=== PATIENT | female | born 1960 | race Caucasian/White ===

== ENCOUNTER → 2017-06-25 | Outpatient (REF) | payer OTHER | LOC: M LAB REF 20:30 | DX: Z12.4 Encounter for screening for malignant neoplasm of cervix (principal) ==

== ENCOUNTER → 2017-07-01 | Outpatient (CLI) | payer OTHER | LOC: M RAD 13:50 | DX: Z12.31 Encounter for screening mammogram for malignant neoplasm of breast (principal); Z78.0 Asymptomatic menopausal state; Z80.3 Family history of malignant neoplasm of breast; Z98.890 Other specified postprocedural states | CPT/HCPCS: 77067 ==

== ENCOUNTER → 2018-07-29 | Outpatient (REF) | payer OTHER ==
[2018-07-29 15:51] LABS: HEMATOCRIT 41.2 % (36.0-47.0); HEMOGLOBIN 14.3 g/dl (12.0-15.5); MEAN CORPUSCULAR HEMOGLOBIN 31.2 pg (27.0-33.0); MEAN CORPUSCULAR HGB CONC 34.7 g/dl (32.0-36.5); RED BLOOD COUNT 4.58 10^6/uL (4.00-5.40); WHITE BLOOD COUNT 5.8 10^3/uL (4.0-10.0)
[2018-07-29 15:52] LABS: BASO % 0.2 % (0.0-1.0); EOS # 0.2 10^3/uL (0.0-0.50); EOS % 2.8 % (0.0-3.0); LYMPH # 1.7 10^3/uL (1.5-4.5); LYMPH % 28.5 % (24.0-44.0); MONO # 0.5 10^3/uL (0.0-0.8); MONO % 8.5 % (0.0-5.0); NEUTROPHILS # 3.4 10^3/uL (1.8-7.7); NEUTROPHILS % 59.3 % (36.0-66.0); PLATELET COUNT, AUTOMATED 209 10^3/uL (150-450)
[2018-07-29 15:58] LABS: ALT/SGPT 23 U/L (12-78); BILIRUBIN,TOTAL 0.6 MG/DL (0.2-1.0); BLOOD UREA NITROGEN 11 MG/DL (7-18); CALCIUM LEVEL 9.3 MG/DL (8.5-10.1); CARBON DIOXIDE LEVEL 29 MEQ/L (21-32); CHLORIDE LEVEL 105 MEQ/L (98-107); CHOLESTEROL LEVEL 198 MG/DL (<200); CHOLESTEROL RISK RATIO 3.193 (<5); CREATININE FOR GFR 0.72 MG/DL (0.55-1.30); GLOMERULAR FILTRATION RATE > 60.0 (>51); GLUCOSE, FASTING 86 MG/DL (70-100); HDL CHOLESTEROL 62 MG/DL (>40); LDL CHOLESTEROL 112 MG/DL (<100); NON-HDL-C 136 MG/DL; POTASSIUM SERUM 4.2 MEQ/L (3.5-5.1); SODIUM LEVEL 140 MEQ/L (136-145); TOTAL PROTEIN 6.7 GM/DL (6.4-8.2); TRIGLYCERIDES LEVEL 121 MG/DL (<150)
[2018-07-29 16:02] LABS: HEMOGLOBIN A1c 4.8 %
== END ==
LOC: M LAB REF 13:10
PROVIDERS: ATTEND Nurse Practitioner Adult Health
DX: Z13.9 Encounter for screening, unspecified (principal)

== ENCOUNTER → 2019-08-06 | Outpatient (REF) | payer OTHER, MEDICAID ==
[2019-08-06 12:56] LABS: BASO % 0.1 % (0.0-1.0); EOS # 0.2 10^3/uL (0.0-0.5); EOS % 2.6 % (0.0-3.0); HEMATOCRIT 42.2 % (36.0-47.0); HEMOGLOBIN 14.6 g/dl (12.0-15.5); LYMPH # 1.6 10^3/uL (1.5-5.0); LYMPH % 22.3 % (24.0-44.0); MEAN CORPUSCULAR HGB CONC 34.6 g/dl (32.0-36.5); MEAN CORPUSCULAR VOLUME 89.6 fl (80.0-96.0); MONO # 0.6 10^3/uL (0.0-0.8); MONO % 8.1 % (0.0-5.0); NEUTROPHILS # 4.6 10^3/uL (1.5-8.5); NEUTROPHILS % 65.8 % (36.0-66.0); PLATELET COUNT, AUTOMATED 195 10^3/uL (150-450); RED BLOOD COUNT 4.71 10^6/uL (4.00-5.40)
[2019-08-06 13:33] LABS: ALBUMIN 3.7 GM/DL (3.2-5.2); ALT/SGPT 22 U/L (12-78); BILIRUBIN,TOTAL 0.8 MG/DL (0.2-1.0); BLOOD UREA NITROGEN 18 MG/DL (7-18); CALCIUM LEVEL 8.8 MG/DL (8.8-10.2); CARBON DIOXIDE LEVEL 26 MEQ/L (21-32); CHLORIDE LEVEL 107 MEQ/L (98-107); CHOLESTEROL LEVEL 199 MG/DL (<200); CHOLESTEROL RISK RATIO 3.262 (<5); CREATININE FOR GFR 0.76 MG/DL (0.55-1.30); FREE T4 1.16 NG/DL (0.76-1.46); GLOMERULAR FILTRATION RATE > 60.0 (>45); GLUCOSE, FASTING 89 MG/DL (70-100); HDL CHOLESTEROL 61 MG/DL (>40); LDL CHOLESTEROL 105 MG/DL (<100); NON-HDL-C 138 MG/DL; POTASSIUM SERUM 4.1 MEQ/L (3.5-5.1); SODIUM LEVEL 138 MEQ/L (136-145); TOTAL PROTEIN 6.7 GM/DL (6.4-8.2); TRIGLYCERIDES LEVEL 164 MG/DL (<150)
[2019-08-06 14:12] LABS: TOTAL 25(OH) VITAMIN D 68.4 NG/ML (30.0-100.0)
[2019-08-06 14:42] LABS: HEMOGLOBIN A1c 4.8 %
== END ==
LOC: M LAB REF 12:25
PROVIDERS: ATTEND Nurse Practitioner Family
DX: Z13.9 Encounter for screening, unspecified (principal); R03.0 Elevated blood-pressure reading, without diagnosis of hypertension; F32.9 Major depressive disorder, single episode, unspecified; F31.9 Bipolar disorder, unspecified; F17.200 Nicotine dependence, unspecified, uncomplicated

== ENCOUNTER → 2019-08-12 | Outpatient (REF) | payer OTHER, MEDICAID ==
[2019-08-12 15:04] LABS: APPEARANCE, URINE CLEAR (CLEAR); BACTERIA, URINE AUTO NEGATIVE (NEGATIVE); BILIRUBIN, URINE AUTO NEGATIVE (NEGATIVE); BLOOD, URINE BLOOD 1+ (NEGATIVE); COLOR, URINE STRAW (YELLOW); GLUCOSE, URINE (UA) AUTO NEGATIVE (NEGATIVE); KETONE, URINE AUTO NEGATIVE (NEGATIVE); LEUKOCYTE ESTERASE, URINE AUTO NEGATIVE (NEGATIVE); NITRITE, URINE AUTO NEGATIVE (NEGATIVE); PROTEIN, URINE AUTO NEGATIVE (NEGATIVE); RBC, URINE AUTO 0 /HPF (0-3); SPECIFIC GRAVITY URINE AUTO 1.003 (1.002-1.035); SQUAMOUS EPITHELIAL CELL UR AU 0 /HPF (0-6); UROBILINOGEN, URINE AUTO 0.2 mg/dL (0.0-2.0); WBC, URINE AUTO 1 /HPF (0-3)
[2019-08-12 16:48] LABS: CHLAMYDIA DNA AMPLIFICATION NEGATIVE (NEGATIVE); GC DNA AMPLIFICATION NEGATIVE (NEGATIVE)
== END ==
LOC: M LAB REF 14:43
PROVIDERS: ATTEND Nurse Practitioner Adult Health
DX: R39.15 Urgency of urination (principal)

== ENCOUNTER 2019-10-15 06:30 | Day surgery (SDC) | payer OTHER ==
[~2019-10-15] VITALS: Ht 160 cm; Wt 58.1 kg
[~2019-10-15 06:30] MED LIST: ACID1CAP5 PO; BENA25CA4 PO; GNP1000T11 PO; IMIP50TA3 PO; L-LY500T14 PO; META0.52 PO; VITAD400CA PO
[2019-10-15] MEDS ORDERED: LIDOCAINE 2% 100MG/5ML SDV (FOR ANES.) As Ordered ONE (07:33)
[2019-10-15] MEDS ORDERED: propofoL 500 MG/50 ML VIAL As Ordered ONE (07:33)
[2019-10-15 08:30] VITALS: BP 161/89
--- NOTE | 2019-11-04 11:35 | ROOR ---
Patient Name: Lorelei Drake Procedure Date: 10/15/2019 7:34 AM Date of : 1960 Age: 59 Room: [facility] Gender: Female Note Status: Finalized Procedure: Colonoscopy Indications: Positive fecal immunochemical test Providers: Leon Mckeon MD Referring MD: Clarence SANTILLAN MD Requesting Provider: Medicines: Monitored Anesthesia Care Complications: No immediate complications. Procedure: Pre-Anesthesia Assessment: - Prior to the procedure, a History and Physical was performed, and patient medications and allergies were reviewed. The patient is competent. The risks and benefits of the procedure and the sedation options and risks were discussed with the patient. All questions were answered and informed consent was obtained. Patient identification and proposed procedure were verified by the physician, the nurse and the anesthesiologist in the procedure room. Mental Status Examination: alert and oriented. Airway Examination: normal oropharyngeal airway and neck mobility. Respiratory Examination: clear to auscultation. CV Examination: normal. Prophylactic Antibiotics: The patient does not require prophylactic antibiotics. Prior Anticoagulants: The patient has taken no previous anticoagulant or antiplatelet agents. ASA Grade Assessment: II - A patient with mild systemic disease. After reviewing the risks and benefits, the patient was deemed in satisfactory condition to undergo the procedure. The anesthesia plan was to use monitored anesthesia care (MAC). Immediately prior to administration of medications, the patient was re-assessed for adequacy to receive sedatives. The heart rate, respiratory rate, oxygen saturations, blood pressure, adequacy of pulmonary ventilation, and response to care were monitored throughout the procedure. The physical status of the patient was re-assessed after the procedure. The Colonoscope was introduced through the anus and advanced to the terminal ileum, with identification of the appendiceal orifice and IC valve. The colonoscopy was performed without difficulty. The patient tolerated the procedure well. The quality of the bowel preparation was good. The terminal ileum, ileocecal valve, appendiceal orifice, and rectum were photographed. Scope insertion time was 3 minutes. Scope withdrawal time was 9 minutes. The total duration of the procedure was 15 minutes. Findings: The perianal and digital rectal examinations were normal. The terminal ileum appeared normal. A 4 mm polyp was found in the appendiceal orifice. The polyp was sessile. The polyp was removed with a jumbo cold forceps. Resection and retrieval were complete. Verification of patient identification for the specimen was done by the physician and nurse using the patient's name, date and medical record number. Estimated blood loss was minimal. Four sessile polyps were found in the recto-sigmoid colon, transverse colon and ascending colon. The polyps were 5 to 8 mm in size. These polyps were removed with a cold snare. Resection and retrieval were complete. A few small-mouthed diverticula were found in the sigmoid colon. Non-bleeding external and internal hemorrhoids were found during retroflexion. The hemorrhoids were small. Impression: - The examined portion of the ileum was normal. - One 4 mm polyp at the appendiceal orifice, removed with a jumbo cold forceps. Resected and retrieved. - Four 5 to 8 mm polyps at the recto-sigmoid colon, in the transverse colon and in the ascending colon, removed with a cold snare. Resected and retrieved. - Diverticulosis in the sigmoid colon. - Non-bleeding external and internal hemorrhoids. Recommendation: - Patient has a contact number available for emergencies. The signs and symptoms of potential delayed complications were discussed with the patient. Return to normal activities tomorrow. Written discharge instructions were provided to the patient. - High fiber diet. - Continue present medications. - Use fiber, for example Citrucel, Fibercon, Konsyl or Metamucil. - Await pathology results. - Repeat colonoscopy in 3 - 5 years for surveillance based on pathology results. - Telephone GI clinic for pathology results in 2 weeks. - Return to primary care physician. Leon Mckeon MD Leon Mckeon MD 10/15/2019 8:16:04 AM Electronically signed by Leon Mckeon MD Number of Addenda: 0 Note Initiated On: 10/15/2019 7:34 AM Estimated Blood Loss: Estimated blood loss was minimal.
== END 2019-10-15 08:49 | disposition home or self-care (01) ==
LOC: M OPP 06:30
PROVIDERS: ATTEND Internal Medicine Gastroenterology
DX: K64.8 Other hemorrhoids (principal); K63.5 Polyp of colon; K57.30 Diverticulosis of large intestine without perforation or abscess without bleeding; R19.5 Other fecal abnormalities; F17.210 Nicotine dependence, cigarettes, uncomplicated; Z79.899 Other long term (current) drug therapy

== ENCOUNTER → 2020-02-03 | Outpatient (REF) | payer OTHER ==
[2020-02-03 12:05] LABS: BASO % 0.2 % (0.0-1.0); EOS # 0.1 10^3/uL (0.0-0.5); EOS % 1.5 % (0.0-3.0); HEMATOCRIT 41.3 % (36.0-47.0); HEMOGLOBIN 13.9 g/dl (12.0-15.5); LYMPH # 1.2 10^3/uL (1.5-5.0); LYMPH % 20.4 % (24.0-44.0); MEAN CORPUSCULAR HGB CONC 33.7 g/dl (32.0-36.5); MEAN CORPUSCULAR VOLUME 89.2 fl (80.0-96.0); MONO # 0.4 10^3/uL (0.0-0.8); MONO % 6.5 % (0.0-5.0); NEUTROPHILS # 4.1 10^3/uL (1.5-8.5); NEUTROPHILS % 70.4 % (36.0-66.0); PLATELET COUNT, AUTOMATED 202 10^3/uL (150-450); RED BLOOD COUNT 4.63 10^6/uL (4.00-5.40); WHITE BLOOD COUNT 5.8 10^3/uL (4.0-10.0)
[2020-02-03 12:41] LABS: ALT/SGPT 21 U/L (12-78); BILIRUBIN,TOTAL 0.6 MG/DL (0.2-1.0); BLOOD UREA NITROGEN 13 MG/DL (7-18); CALCIUM LEVEL 8.9 MG/DL (8.8-10.2); CARBON DIOXIDE LEVEL 30 MEQ/L (21-32); CHLORIDE LEVEL 109 MEQ/L (98-107); CHOLESTEROL LEVEL 205 MG/DL (<200); CHOLESTEROL RISK RATIO 3.059 (<5); CREATININE FOR GFR 0.89 MG/DL (0.55-1.30); FREE T4 0.93 NG/DL (0.76-1.46); GLOMERULAR FILTRATION RATE > 60.0 (>45); GLUCOSE, FASTING 92 MG/DL (70-100); HDL CHOLESTEROL 67 MG/DL (>40); LDL CHOLESTEROL 117 MG/DL (<100); NON-HDL-C 138 MG/DL; POTASSIUM SERUM 4.4 MEQ/L (3.5-5.1); SODIUM LEVEL 142 MEQ/L (136-145); TOTAL 25(OH) VITAMIN D 57.4 NG/ML (30.0-100.0); TRIGLYCERIDES LEVEL 103 MG/DL (<150)
[2020-02-03 13:31] LABS: HEMOGLOBIN A1c 5.3 %
== END ==
LOC: M LAB REF 11:42
PROVIDERS: ATTEND Nurse Practitioner Family
DX: I10 Essential (primary) hypertension (principal); F17.200 Nicotine dependence, unspecified, uncomplicated; Z13.228 Encounter for screening for other metabolic disorders

== ENCOUNTER → 2020-09-16 | Outpatient (CLI) | payer OTHER ==
--- NOTE | 2020-09-16 13:40 | REP ---
INDICATION: LOW BACK PAIN. COMPARISON: None. TECHNIQUE: Three AP and lateral views lumbar spine. FINDINGS: There is no compression fracture. There is spondylolysis of L5 with mild anterior grade 1 spondylolisthesis of L5. There is moderate disc space narrowing, subchondral sclerosis and vacuum at L5-S1. The other lumbar disc spaces are well preserved. IMPRESSION: Spondylolysis L5 with mild associated anterior grade 1 spondylolisthesis. Moderate degenerative disc changes L5-S1. <Electronically signed by Bert Barton > 09/16/20 [id number]
== END ==
LOC: M WUC 11:54
PROVIDERS: ATTEND Pediatrics
DX: M54.5 Low back pain (principal)

== ENCOUNTER → 2021-03-28 | Outpatient (CLI) | payer OTHER, MEDICAID | LOC: M WHC 14:06 | PROVIDERS: ATTEND Pediatrics | DX: Z12.31 Encounter for screening mammogram for malignant neoplasm of breast (principal); Z78.0 Asymptomatic menopausal state; Z80.3 Family history of malignant neoplasm of breast ==

== ENCOUNTER → 2022-02-27 | Outpatient (CLI) | payer MEDICAID, OTHER | LOC: M WHC 08:55 | PROVIDERS: ATTEND Pediatrics | DX: Z13.820 Encounter for screening for osteoporosis (principal); M85.88 Other specified disorders of bone density and structure, other site; M85.851 Other specified disorders of bone density and structure, right thigh; M85.852 Other specified disorders of bone density and structure, left thigh ==

== ENCOUNTER 2022-08-15 07:05 | Day surgery (SDC) | payer OTHER ==
[~2022-08-15] VITALS: Ht 160 cm; Wt 57.2 kg
[~2022-08-15 07:05] MED LIST changes: +APPL300T4 PO; +AZO1CAP PO; +GARL3CAP4 PO; +LOSA25TA13 PO; +ceFAZolin SOD 2 GM in IV 1 EA IV ONE
[2022-08-15] MEDS ORDERED: LR 1,000 ML IV SCH (07:50)
[2022-08-15] MEDS ORDERED: fentaNYL 100 MCG/2 ML INJECTION As Ordered ONE (08:12)
[2022-08-15] MEDS ORDERED: MORPHINE 10 MG/ML 1ML VIAL As Ordered ONE (08:12)
[2022-08-15] MEDS ORDERED: MIDAZOLAM INJ 2MG/2ML VIAL As Ordered ONE (08:12)
[2022-08-15] MEDS ORDERED: propofoL 200 MG/20 ML VIAL As Ordered ONE ×2 (08:14→08:59)
[2022-08-15] MEDS ORDERED: LIDOCAINE 2% 100MG/5ML SDV (FOR ANES.) As Ordered ONE (08:14)
[2022-08-15] MEDS ORDERED: LIDOCAINE 1% SDV 30ML VIAL As Ordered ONE (08:15)
[2022-08-15] MEDS ORDERED: ONDANSETRON 4MG 2ML VIAL As Ordered ONE (08:15)
[2022-08-15] MEDS ORDERED: KETOROLAC 60MG 2ML VIAL As Ordered ONE (08:15)
[2022-08-15] MEDS ORDERED: ACETAMINOPHEN 1000MG 100ML IV BAG As Ordered ONE (08:17)
[2022-08-15 10:05] VITALS: BP 138/75; TEMP 97.6; O2SAT 97
== END 2022-08-15 10:10 | disposition home or self-care (01) ==
LOC: M SDC 07:05
PROVIDERS: ATTEND Podiatrist Foot & Ankle Surgery
DX: M20.42 Other hammer toe(s) (acquired), left foot (principal); I10 Essential (primary) hypertension; E78.5 Hyperlipidemia, unspecified; F31.9 Bipolar disorder, unspecified; F41.9 Anxiety disorder, unspecified; F32.A Depression, unspecified; F12.10 Cannabis abuse, uncomplicated; F17.210 Nicotine dependence, cigarettes, uncomplicated; Z79.899 Other long term (current) drug therapy
CPT/HCPCS: 28285; 76000; 93005; J0131; J0690; J1885; J2250; J2405; J3010

== ENCOUNTER → 2023-02-01 | Outpatient (CLI) | payer OTHER ==
[~2023-02-01] MED LIST changes: -ceFAZolin SOD 2 GM in IV 1 EA IV ONE
== END ==
LOC: M WHC 15:32
PROVIDERS: ATTEND Pediatrics
DX: Z12.31 Encounter for screening mammogram for malignant neoplasm of breast (principal)

== ENCOUNTER → 2023-02-05 | Outpatient (REF) | payer OTHER ==
[2023-02-05 17:09] LABS: BLOOD UREA NITROGEN 11 MG/DL (9-23); CALCIUM LEVEL 9.1 MG/DL (8.3-10.6); CARBON DIOXIDE LEVEL 28 MMOL/L (20-31); CHLORIDE LEVEL 106 MMOL/L (98-107); CHOLESTEROL LEVEL 197 MG/DL (<200); CHOLESTEROL RISK RATIO 3.09 (<5); CREATININE FOR GFR 0.68 MG/DL (0.55-1.30); GLOMERULAR FILTRATION RATE > 60.0 (>45); GLUCOSE, FASTING 99 MG/DL (74-106); HDL CHOLESTEROL 63.7 MG/DL (>40); LDL CHOLESTEROL 96.7 MG/DL (<100); NON-HDL-C 133.3 MG/DL; POTASSIUM SERUM 4.1 MMOL/L (3.5-5.1); SODIUM LEVEL 141 MMOL/L (136-145); TRIGLYCERIDES LEVEL 183 MG/DL (<150)
[2023-02-05 17:37] LABS: THYROID STIMULATING HORMONE 2.755 uIU/ML (0.55-4.78)
== END ==
LOC: M LAB REF 16:23
PROVIDERS: ATTEND Pediatrics
DX: I10 Essential (primary) hypertension (principal); E78.5 Hyperlipidemia, unspecified

== ENCOUNTER → 2023-12-02 | Outpatient (REF) | payer OTHER ==
[~2023-12-02] MED LIST changes: +IMIP50TA10 PO; -IMIP50TA3 PO
[2023-12-02 14:05] LABS: CREATININE, URINE 25.5 MG/DL; MALB URINE SIEMENS < 3.0 MG/L; MAU/CREAT RATIO 11.7 MCG/MG (0.0-30.0)
[2023-12-02 16:50] LABS: BASO % 0.3 % (0.0-1.0); EOS # 0.2 10^3/uL (0.0-0.5); EOS % 1.5 % (0.0-3.0); HEMATOCRIT 41.4 % (36.0-47.0); HEMOGLOBIN 14.3 g/dl (12.0-15.5); LYMPH # 1.7 10^3/uL (1.5-5.0); LYMPH % 17.6 % (24.0-44.0); MEAN CORPUSCULAR HEMOGLOBIN 31.5 pg (27.0-33.0); MEAN CORPUSCULAR HGB CONC 34.5 g/dl (32.0-36.5); MEAN CORPUSCULAR VOLUME 91.2 fl (80.0-96.0); MONO # 0.6 10^3/uL (0.0-0.8); MONO % 6.2 % (2.0-8.0); NEUTROPHILS # 7.3 10^3/uL (1.5-8.5); PLATELET COUNT, AUTOMATED 240 10^3/uL (150-450); RED BLOOD COUNT 4.54 10^6/uL (4.00-5.40); WHITE BLOOD COUNT 9.9 10^3/uL (4.0-10.0)
[2023-12-02 16:55] LABS: BLOOD UREA NITROGEN 14 MG/DL (9-23); CALCIUM LEVEL 9.5 MG/DL (8.3-10.6); CARBON DIOXIDE LEVEL 29 MMOL/L (20-31); CHLORIDE LEVEL 105 MMOL/L (98-107); CHOLESTEROL LEVEL 184 MG/DL (<200); CHOLESTEROL RISK RATIO 2.64 (<5); CREATININE FOR GFR 0.67 MG/DL (0.55-1.30); GLOMERULAR FILTRATION RATE > 60.0 (>45); GLUCOSE, FASTING 89 MG/DL (74-106); HDL CHOLESTEROL 69.5 MG/DL (>40); LDL CHOLESTEROL 93.1 MG/DL (<100); NON-HDL-C 114.5 MG/DL; SODIUM LEVEL 138 MMOL/L (136-145); TRIGLYCERIDES LEVEL 107 MG/DL (<150)
[2023-12-02 16:59] LABS: THYROID STIMULATING HORMONE 2.326 uIU/ML (0.55-4.78)
== END ==
LOC: M LAB REF 12:25
PROVIDERS: ATTEND Pediatrics
DX: I10 Essential (primary) hypertension (principal); E78.5 Hyperlipidemia, unspecified; D12.6 Benign neoplasm of colon, unspecified

== ENCOUNTER → 2024-03-23 | Outpatient (CLI) | payer OTHER ==
[~2024-03-23] MED LIST changes: +ASPI81TA26 PO; +GARL580C PO
== END ==
LOC: M WHC 10:17
PROVIDERS: ATTEND Pediatrics
DX: Z12.31 Encounter for screening mammogram for malignant neoplasm of breast (principal); R92.323 Mammographic fibroglandular density, bilateral breasts

== ENCOUNTER 2024-04-01 09:59 | Day surgery (SDC) | payer OTHER ==
[~2024-04-01] VITALS: Ht 160 cm; Wt 54.9 kg
[2024-04-01] MEDS ORDERED: LIDOCAINE 2% 100MG/5ML SDV (FOR ANES.) As Ordered ONE (11:18)
[2024-04-01] MEDS ORDERED: propofoL 200 MG/20 ML VIAL As Ordered ONE (11:18)
[2024-04-01 11:55] VITALS: TEMP 96.9
[2024-04-01 12:12] VITALS: BP 168/98; O2SAT 98
== END 2024-04-01 12:25 | disposition home or self-care (01) ==
LOC: M OPP 09:59
PROVIDERS: ATTEND Surgery
DX: D12.6 Benign neoplasm of colon, unspecified (principal); Z86.0100 Personal history of colon polyps, unspecified; Z79.82 Long term (current) use of aspirin; Z79.899 Other long term (current) drug therapy; F17.210 Nicotine dependence, cigarettes, uncomplicated

== ENCOUNTER → 2024-11-23 | Outpatient (CLI) | payer MEDICARE, OTHER | LOC: M WUC 10:33 | PROVIDERS: ATTEND Pediatrics | DX: M54.2 Cervicalgia (principal); M25.551 Pain in right hip; M47.812 Spondylosis without myelopathy or radiculopathy, cervical region; M16.11 Unilateral primary osteoarthritis, right hip ==

== ENCOUNTER → 2024-11-23 | Outpatient (REF) | payer MEDICARE ==
[2024-11-23 13:43] LABS: BASO # 0.0 10^3/uL (0.0-0.2); BASO % 0.4 % (0.0-1.0); EOS # 0.1 10^3/uL (0.0-0.5); EOS % 1.4 % (0.0-3.0); LYMPH # 1.2 10^3/uL (1.5-5.0); LYMPH % 16.0 % (24.0-44.0); MONO # 0.6 10^3/uL (0.0-0.8); MONO % 7.8 % (2.0-8.0); NEUTROPHILS # 5.7 10^3/uL (1.5-8.5); NEUTROPHILS % 73.5 % (36.0-66.0); PLATELET COUNT, AUTOMATED 205 10^3/uL (150-450)
[2024-11-23 13:44] LABS: C REACTIVE PROTEIN QUANTITATIV 0.68 MG/DL (<1.0); CALCIUM LEVEL 9.1 MG/DL (8.3-10.6); CARBON DIOXIDE LEVEL 30.0 MMOL/L (20-31); CHLORIDE LEVEL 103.0 MMOL/L (98-107); CHOLESTEROL LEVEL 194.0 MG/DL (<200); CHOLESTEROL RISK RATIO 2.81 (<5); CREATININE FOR GFR 0.74 MG/DL (0.55-1.30); GLOMERULAR FILTRATION RATE 89.7 (>45); LDL CHOLESTEROL 108.1 MG/DL (<100); NON-HDL-C 125.1 MG/DL; POTASSIUM SERUM 4.2 MMOL/L (3.5-5.1); RHEUMATOID FACTOR QUANT 3.8 IU/ML (<14); SODIUM LEVEL 139.0 MMOL/L (136-145); TRIGLYCERIDES LEVEL 85.0 MG/DL (<150)
[2024-11-23 13:47] LABS: TOTAL 25(OH) VITAMIN D 76.9 NG/ML (20.0-100.0)
[2024-11-23 13:48] LABS: ERYTHROCYTE SEDIMENTATION RATE 11 mm/hr (0-30)
[2024-11-23 15:16] LABS: CREATININE, URINE 131.8 MG/DL; MALB URINE SIEMENS 6.0 MG/L; MAU/CREAT RATIO 4.5 MCG/MG (0.0-30.0)
[2024-11-26 14:32] LABS: ANA PATTERN 2 Nuclear, Speckled; ANA TITER 2 1:80 titer (NEGATIVE)
== END ==
LOC: M LAB REF 11:51
PROVIDERS: ATTEND Pediatrics
DX: I10 Essential (primary) hypertension (principal); E78.5 Hyperlipidemia, unspecified; M85.80 Other specified disorders of bone density and structure, unspecified site; M54.2 Cervicalgia; M25.551 Pain in right hip; M47.812 Spondylosis without myelopathy or radiculopathy, cervical region; M16.11 Unilateral primary osteoarthritis, right hip